=== PATIENT | female | born 1950 | race Caucasian/White ===

== ENCOUNTER 2017-08-16 21:35 | Emergency (ER) | payer MEDICARE ==
[2017-08-16 21:47] VITALS: BP 196/113; PULSE 83; RESP 18; TEMP 98.6; O2SAT 96
--- NOTE | 2017-08-16 22:18 | RADRPT ---
EXAM DATE/TIME: 08/16/2017 21:59 [place] COMPARISON: No previous studies available for comparison. INDICATIONS : Right proximal humerus pain after fall. MEDICAL HISTORY : None. SURGICAL HISTORY : None. ENCOUNTER: Initial ACUITY: 1 day PAIN SCORE: 10/10 LOCATION: Right proximal humerus. FINDINGS: There is fracturing of the proximal humerus. There appears to fracture of the surgical neck and the g reater tubercle. The glenohumeral joint is aligned. The acromioclavicular joint is aligned. CONCLUSION: Proximal right humeral fracture. Jose Elias Johnson MD on August 16, 2017 at 22:16 Board Certified Radiologist. This report was verified electronically.
[2017-08-16 22:36] VITALS: BP 192/111; PULSE 78; RESP 18; O2SAT 96
[2017-08-16] MEDS ORDERED: METO50TA PO (22:46)
[2017-08-16] MEDS ORDERED: LEVO.075 PO (22:46)
[2017-08-16] MEDS ORDERED: BENI20TA3 PO (22:46)
[2017-08-16] MEDS ORDERED: ALPR.5 PO (22:46)
[2017-08-16] MEDS ORDERED: IBUP1TAB7 PO (22:49)
[2017-08-16] MEDS ORDERED: HYDR-3516 PO (22:49)
--- NOTE | 2017-08-16 22:54 | PD ---
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 She reports prior to arrival she was stepping over a pet fence when she tripped and fell, landing directly on her right shoulder. Denies head trauma or loss of consciousness. She is complaining of right shoulder pain, throbbing, worse with any sort of movement. Denies any numbness or tingling or weakness distal to the injury site. She denies any other injuries and she has no other complaints at this time. PFSH Past Medical History Heart Rhythm Problems: Yes (MVP) High Cholesterol: Yes Diminished Hearing: No Genitourinary: Yes (urosepsis) Hypertension: Yes Kidney Stones: Yes Neurologic: Yes (ceribral embilism) Tetanus Vaccination: Unknown Influenza Vaccination: Yes ?: Not Menopausal: Yes Past Surgical History Cholecystectomy: Yes Neurologic Surgery: Yes (ceribral embilism) Tonsillectomy: Yes Social History Alcohol Use: Yes (socially) Tobacco Use: No Substance Use: No Allergies-Medications (Allergen,Severity, Reaction): Coded Allergies: No Known Allergies (Unverified , 08/16/17) Reported Meds & Prescriptions Reported Meds & Active Scripts Active Ibuprofen 800 Mg Tab 800 Mg PO Q6HR PRN Hydrocodone-Acetaminophen 5-325 mg Tab 1 Tab PO Q6H PRN Reported Xanax (Alprazolam) 0.5 Mg Tab 0.5 Mg PO Q4H PRN Metoprolol Tartrate 50 Mg Tab 50 Mg PO DAILY Synthroid (Levothyroxine Sodium) 75 Mcg Tab 75 Mcg PO DAILY Benicar Hct (Olmesartan-Hydrochlorothiazide) 20-12.5 mg Tab 1 Tab PO DAILY Review of Systems HENT: No: Headaches Cardiovascular: No: Chest Pain or Discomfort Gastrointestinal: No: Nausea, Vomiting Musculoskeletal: Positive: Limited ROM, Pain Neurologic: No: Weakness, Dizziness, Syncope, Headache, Paresthesia Physical Exam Narrative GENERAL: Well-developed well-nourished female who appears uncomfortable on initial examination. SKIN: Warm and dry. HEAD: Atraumatic. Normocephalic. CARDIOVASCULAR: Regular rate and rhythm. No murmur appreciated. RESPIRATORY: No accessory muscle use. Clear to auscultation. Breath sounds equal bilaterally. GASTROINTESTINAL: Abdomen soft, non-tender, nondistended. Hepatic and splenic margins not palpable. MUSCULOSKELETAL: Generalized tenderness to palpation of the right shoulder joint. Patient is holding her right shoulder in internal rotation. She has pain with any sort of passive or active range of motion of the right shoulder. Normal family support specialist strength. Full range of motion of the right hand. 2+ radial pulse. Distal sensation is preserved. Full range of motion of the neck with no apparent discomfort. NEUROLOGICAL: Awake and alert. No obvious cranial nerve deficits. Motor grossly within normal limits. Normal speech. Data Data Last Documented VS Vital Signs Date Time Temp Pulse Resp B/P (MAP) Pulse Ox O2 Delivery O2 Flow Rate FiO2 08/16/17 22:36 78 18 192/111 (138) 96 Room Air 08/16/17 21:47 98.6 Orders Orders Humerus (Min 2vws) (08/16/17 ) Acetamin-Hydrocod 325-5 Mg (Hazard 5-325 (08/16/17 23:00) Ibuprofen (Motrin) (08/16/17 23:00) Radiology Film Requests (08/16/17 ) Splint Or Brace Apply/Monitor (08/16/17 22:48) Ed Discharge Order (08/16/17 22:48) [facility] Medical Decision Making Medical Screen Exam Complete: Yes Emergency Medical Condition: Yes Medical Record Reviewed: Yes Differential Diagnosis Proximal humeral fracture, acromioclavicular separation, shoulder dislocation, rotator cuff tear Narrative Course X-ray imaging reveals a proximal right humeral fracture. The patient is currently on vacation visiting family member, she is returning home to [facility] in 2 days. She works as a nurse and reports that she will be able to establish follow-up care with an orthopedist there. She will be given a copy of her x-ray and CT and also a copy of her radiology report. She will be discharged with a sling and swath and Lortab, ibuprofen for pain control. All questions answered, she is stable for discharge. Diagnosis Primary Impression: Proximal humeral fracture Referrals: Orthopedist Additional Instructions: Please provide the patient a copy of her x-ray report upon discharge. Medication as needed. Take ibuprofen with meals. Do not drive or drink alcohol and taking Lortab. Follow-up with an orthopedist in the next week. Ice the affected area several times a day 15-20 minutes at a time. Return for any emergent medical conditions. Med/Other Pt SpecificInfo: Prescription(s) given, Orthopedic Instructions Scripts Ibuprofen (Ibuprofen) 800 Mg Tab 800 MG PO Q6HR Y for PAIN, #40 TAB 0 Refills Prov: Kaye Trevizo MD 08/16/17 Hydrocodone-Acetaminophen (Hydrocodone-Acetaminophen) 5-325 mg Tab 1 TAB PO Q6H Y for PAIN, #15 TAB 0 Refills Prov: Kaye Trevizo MD 08/16/17 Disposition: 01 DISCHARGE HOME Condition: Stable Preston Castillo Aug 16, 2017 22:54
[2017-08-16] MEDS ORDERED: IBUPROFEN 800 MG TAB PO ONE (23:00)
[2017-08-16] MEDS ORDERED: ACETAMINOPHEN/HYDROcodone 325 MG/5 MG TAB PO ONE (23:00)
== END 2017-08-16 23:35 | disposition home or self-care (01) ==
LOC: NEPC 21:35
DX: S42.201A Unspecified fracture of upper end of right humerus, initial encounter for closed fracture (principal); W01.0XXA Fall on same level from slipping, tripping and stumbling without subsequent striking against object, initial encounter; Y93.01 Activity, walking, marching and hiking; I10 Essential (primary) hypertension
CPT/HCPCS: 29240; 73060